=== PATIENT | female | born 1990 ===

== ENCOUNTER 2021-01-31 00:14 | Emergency (ER) | payer MEDICAID ==
[~2021-01-31] VITALS: Ht 165.1 cm; Wt 90.7 kg
[2021-01-31] MEDS ORDERED: LORAZEPAM 0.5 MG TABLET PO ONE (00:30)
[2021-01-31] MEDS ORDERED: HALOPERIDOL 0.5 MG TABLET PO ONE (00:30)
--- NOTE | 2021-01-31 00:30 | NUR ---
PATIENT IS AWAKE , WITH TREMORS , ANXIOUS , BP IS 105 /50 HR IS 70 , RR IS 25 OXYGEN SATURATION IS 94 % ON RA
[2021-01-31] MEDS ORDERED: LORAZEPAM 1 MG TABLET ONE (00:40)
[2021-01-31] MEDS ORDERED: HALOPERIDOL 5 MG TABLET ONE (00:41)
--- NOTE | 2021-01-31 00:42 | NUR ---
SLEEPING BUT EASILY AROUSABLE
--- NOTE | 2021-01-31 03:31 | NUR ---
assisted the patient to the restroom , drowsy , bp is 113 / 59 , denies distress
--- NOTE | 2021-01-31 04:42 | NUR ---
sleeping soundly easily arousable , able to follow simple command , denies distress bp 119/68
--- NOTE | 2021-01-31 06:30 | NUR ---
sleeping , easily arousable . denies distress
--- NOTE | 2021-01-31 07:30 | NUR ---
Pt awake, alert and oriented. No acute distress noted, pt eating breakfast.
--- NOTE | 2021-01-31 08:59 | NUR ---
pt ride here to take the pt.Patient discharged to home in stable condition. Written and verbal after care instructions given. Patient verbalizes understanding of instructions. Stressed follow up or return to ER for worsening s/s. pt walks i nsteadya gait, no sign of distress, axox4.
[2021-01-31 09:01] VITALS: BP 115/68
== END 2021-01-31 09:02 | disposition home or self-care (01) ==
LOC: ER 00:17
DX: F15.129 Other stimulant abuse with intoxication, unspecified (principal)
CPT/HCPCS: A4663

== ENCOUNTER 2021-07-03 16:25 | Emergency (ER) | payer MEDICAID ==
[~2021-07-03] VITALS: Ht 165.1 cm; Wt 90.7 kg
[2021-07-03] MEDS ORDERED: ONDANSETRON 4 MG/2 ML VIAL IV ONE (16:30)
[2021-07-03] MEDS ORDERED: IV NORMAL SALINE 1000 ML BAG IV ONE ×2 (16:30→16:45)
[2021-07-03] MEDS ORDERED: CHARCOAL/SORBITOL SOLUTION 50 GM/240 ML BOTTLE PO ONE (16:30)
--- NOTE | 2021-07-03 16:31 | NUR ---
Placed a call to poison control @ , spoke to Jorge L, case # [id number]. Dr Hewitt made aware of poison control advice.
[2021-07-03] MEDS ORDERED: ACETAMINOPHEN ES 500 MG TABLET ONE (16:51)
[2021-07-03] MEDS ORDERED: CHARCOAL/SORBITOL SOLUTION 50 GM/240 ML BOTTLE ONE (16:58)
[2021-07-03] MEDS ORDERED: ONDANSETRON 4 MG/2 ML VIAL ONE (16:58)
[2021-07-03 17:06] LABS: MEAN CORPUSCULAR HEMOGLOBIN 31.9 uug (24.7-32.8); MEAN CORPUSCULAR VOLUME 94.3 fL (75.5-95.3); PLATELET COUNT (AUTO) 284 K/uL (179-408)
--- NOTE | 2021-07-03 17:17 | NUR ---
Pt. calm, cooperative, BIB [employer], and [employer] (who wrote 5150 hold), reports pt consumed 100 tablets of 200mg Advil, trying to kill herself in response to a relative's recent suicide; started IV 20g left hand. Pt endorses SI, denies HI, AH and VH. Pt c/o nausea and some SOB, denies CP, vomiting, and dizziness.
[2021-07-03 17:18] LABS: CARBON DIOXIDE 25 mmol/L (21-32); CHLORIDE 102 mmol/L (98-107); CREATININE 0.9 mg/dL (0.6-1.3); GLUCOSE 70 mg/dL (74-106); POTASSIUM 4.6 mmol/L (3.5-5.1); UREA NITROGEN, BLOOD 9 mg/dL (7-18)
[2021-07-03] MEDS ORDERED: ONDANSETRON ODT 4 MG TAB.RAPDIS ONE (17:18)
[2021-07-03 17:19] LABS: ETHANOL < 3 MG/DL (0-0)
[2021-07-03 17:24] LABS: ALANINE AMINOTRANSFERASE 18 U/L (14-59); ALKALINE PHOSPHATASE 68 U/L (50-136); ASPARTATE AMINOTRANSFERASE 20 U/L (15-37); BILIRUBIN,DIRECT 0.1 mg/dL (0.0-0.2); BILIRUBIN,TOTAL 0.2 mg/dL (0.2-1.0); TOTAL PROTEIN, SERUM 7.2 g/dL (6.4-8.2)
[2021-07-03 17:31] LABS: ACETAMINOPHEN < 2.0 ug/mL (10-30)
--- NOTE | 2021-07-03 19:20 | NUR ---
Patient is resting comfortably in bed with eyes closed, no acute distress noted.
[2021-07-03 19:29] LABS: *BILIRUBIN,URIN NEGATIVE (NEGATIVE); *BLOOD, URINE NEGATIVE (NEGATIVE); *CLARITY,URINE CLEAR (CLEAR); *COLOR,URINE YELLOW (YELLOW); *KETONES,URINE NEGATIVE (NEGATIVE); *UROBILINOGEN,URINE 0.2 E.U./dl (NORMAL); LEUKOCYTE ESTERASE ,URINE NEGATIVE (NEGATIVE); NITRITE, URINE NEGATIVE (NEGATIVE); PH,URINE 6.5 (5.0-8.0); UGLUCOSE NEGATIVE (NEGATIVE)
[2021-07-03 19:43] LABS: *AMPHETAMINE, URINE NEGATIVE (NEGATIVE); *CANNABINOID, URINE NEGATIVE (NEGATIVE); *COCCAINE, URINE NEGATIVE (NEGATIVE); *OPIATE, URINE NEGATIVE (NEGATIVE); *PHENCYCLIDINE SCREEN,URINE NEGATIVE (NEGATIVE)
--- NOTE | 2021-07-03 20:20 | NUR ---
Patient is resting comfortably in bed with eyes closed, no acute distress noted.
--- NOTE | 2021-07-03 21:00 | NUR ---
Note brebilly in ED - 07/03/21 at 2121 by KANDY Attempted to contact crisis team for psych eval of patientPelon Olivas states she will be unable to before the end of her shift d/t having two evaluations to do at this time. Will contact [facility] crisis team at 2200.
--- NOTE | 2021-07-03 21:20 | NUR ---
Waste Water Operator Rach contacted, stated she would be unable to pull CNAs from floor to be 1:1 sitter for patient. She stated to use security up until 10pm.
--- NOTE | 2021-07-03 21:21 | NUR ---
Deisy unable to find placement of psych facility for patient d/t working on two evaluations before the end of her shift. Will contact [facility] for placement of patient.
--- NOTE | 2021-07-03 21:31 | NUR ---
Security at bedside watching patient.
[2021-07-03 21:52] LABS: BILIRUBIN,TOTAL 0.1 mg/dL (0.2-1.0); CREATININE 1.2 mg/dL (0.6-1.3); POTASSIUM 3.9 mmol/L (3.5-5.1); TOTAL PROTEIN, SERUM 6.9 g/dL (6.4-8.2)
--- NOTE | 2021-07-03 22:02 | NUR ---
Bert CASTELLANOW contacted to assist with placement of patient in psych facility. Pending arrival.
--- NOTE | 2021-07-03 22:40 | NUR ---
[employer] WORKER [facility] arrived to assess patient for psychiatric placement.
[2021-07-03] MEDS ORDERED: ONDA4TAB5 PO (23:06)
[2021-07-03] MEDS ORDERED: DICY20TA11 PO (23:06)
[2021-07-03] MEDS ORDERED: MAG HYDROX/AL HYDROX/SIMETH 30 ML LIQUID UDC PO ONE (23:15)
[2021-07-03] MEDS ORDERED: DICYCLOMINE HCL LIQ 10 MG/5 ML UDC PO ONE (23:15)
[2021-07-03] MEDS ORDERED: DICYCLOMINE HCL 20 MG/2 ML AMPUL IM SCH (23:15)
[2021-07-03] MEDS ORDERED: MAG HYDROX/AL HYDROX/SIMETH 30 ML LIQUID UDC ONE (23:22)
[2021-07-03] MEDS ORDERED: DICYCLOMINE HCL LIQ 10 MG/5 ML UDC ONE (23:22)
--- NOTE | 2021-07-03 23:27 | NUR ---
Patient discharged to home in stable condition. Written and verbal after care instructions given. Patient verbalizes understanding of instructions. Stressed follow up or return to ER for worsening s/s. Patient ambulates with steady gait, V/S stable, IV line removed, patient received paper Rx, and left with all personal belongings via her UBER. [facility] Brian states 5150 hold has been broken.
[2021-07-03 23:30] VITALS: BP 112/66
== END 2021-07-03 23:27 | disposition home or self-care (01) ==
LOC: ER 16:26
DX: T39.312A Poisoning by propionic acid derivatives, intentional self-harm, initial encounter (principal); R11.0 Nausea; Y92.89 Other specified places as the place of occurrence of the external cause; R00.0 Tachycardia, unspecified; Z81.8 Family history of other mental and behavioral disorders; F17.210 Nicotine dependence, cigarettes, uncomplicated; R10.9 Unspecified abdominal pain; F31.9 Bipolar disorder, unspecified; Z20.822 Contact with and (suspected) exposure to COVID-19
CPT/HCPCS: 36415; 80048; 80053; 80076; 80299; 80307; 80320; 81003; 84702; 85025; 85730; 87426; 93005; 96361; 96374; 99291; 99406; J2405; A9150; G0480; J7030; Q0162